=== PATIENT | female | born 1940 | race Caucasian/White ===

== ENCOUNTER 2024-03-27 06:13 | Day surgery (SDC) | payer OTHER ==
[2024-03-22 16:11] VITALS: BMI 26.9
[2024-03-27] MEDS ORDERED: ceFAZolin SODIUM 1 GM VIAL ONE ×2 (07:16→08:18)
[2024-03-27] MEDS ORDERED: ERYTHROMYCIN 0.5% OPHTHALMIC OINTMENT 3.5 GM TUBE ONE (07:16)
[2024-03-27] MEDS ORDERED: LIDOCAINE 1%/EPI 1:100000 (20 ML MULTI DOSE VIAL) ONE (07:17)
[2024-03-27] MEDS ORDERED: MIDAZOLAM HCL 2 MG/2 ML SINGLE DOSE VIAL ONE (07:17)
[2024-03-27] MEDS ORDERED: POVIDONE-IODINE 5% OPHTHALMIC PREP 30 ML SOLUTION ONE (07:17)
[2024-03-27] MEDS ORDERED: BUPIVACAINE HCL/PF 0.5% (5MG/ML) 10 ML VIAL ONE (07:17)
[2024-03-27] MEDS ORDERED: TETRACAINE 0.5% OPHTH SOLN 2 ML BOTTLE ONE (07:17)
[2024-03-27] MEDS ORDERED: PROPOFOL 20 ML ONE (07:17)
[2024-03-27] MEDS ORDERED: ONDANSETRON 4 MG/2 ML VIAL IVPUSH PRN (07:43)
[2024-03-27] MEDS ORDERED: ACETAMINOPHEN INJECTION 100 ML ONE (07:43)
[2024-03-27] MEDS ORDERED: LACTATED RINGERS SOLUTION 1,000 ML IV SCH (07:45)
[2024-03-27] MEDS ORDERED: ONDANSETRON 4 MG/2 ML VIAL ONE (08:18)
[2024-03-27 09:46] VITALS: TEMP 97.4
[2024-03-27 12:22] VITALS: BP 121/71; PULSE 61
[2024-03-27 12:34] VITALS: RESP 18
== END 2024-03-27 11:20 | disposition home or self-care (01) ==
LOC: FASU 06:13
PROVIDERS: ATTEND Ophthalmology
PROC: 080N0ZZ Alteration of Right Upper Eyelid, Open Approach (ICD-10-PCS; 2024-03-27)
PROC: 080P0ZZ Alteration of Left Upper Eyelid, Open Approach (ICD-10-PCS; principal; 2024-03-27 08:13)
PROC: 080N0ZZ Alteration of Right Upper Eyelid, Open Approach (ICD-10-PCS; 2024-03-27 08:13)
DX: H02.401 Unspecified ptosis of right eyelid (principal); H02.834 Dermatochalasis of left upper eyelid; H02.831 Dermatochalasis of right upper eyelid
CPT/HCPCS: 82962; 88304-TC; 94760; J0131